=== PATIENT | male | born 1930 | race Two or more races ===

== ENCOUNTER → 2016-08-23 | Outpatient (CLI) | payer MEDICARE, MEDICAID ==
--- NOTE | 2016-08-23 14:30 | Diagnostic Imaging Report ---
Indications: And pain, status post fall Technique: Spiral acquisitions obtained through the brain. Angled axial and coronal 5 x 5 mm slices were reconstructed. Total dose length product 1333 mGycm. CTDI vol(s) 70 mGy Comparison: None Findings: There is a right frontoparietal craniotomy/craniectomy defect. There is no evidence of acute calvarial fracture. Questionably minimal scalp soft tissue contusion is seen in the high left parietal region near the midline. No other evidence of significant extracranial soft tissue injury. There is encephalomalacia involving the anterior right temporal lobe, and a smaller focus of encephalomalacia in the posterior right parietal lobe. There is ex vacuo dilatation of the body and temporal horn of the right lateral ventricle. There is generalized age-related enlargement of the ventricles and extra axial CSF spaces. No acute intracranial hemorrhage or edema. No mass effect or midline shift. Normal ordonez-white differentiation. There is left ethmoid sinus mucosal disease. The mastoids are clear. Included portions of the orbits are unremarkable except for possible prior cataract surgery on the right. 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 Correlate with clinical and surgical history Other chronic and age-related changes, as described Equivocal evidence of minimal high left parietal scalp soft tissue injury. Correlate with clinical findings Sinus disease The CT scanner at [facility] is accredited by the [employer] and the scans are performed using protocols designed to limit radiation exposure to as low as reasonably achievable to attain images of sufficient resolution adequate for diagnostic evaluation.
== END | disposition home or self-care (01) ==
LOC: CAT 12:59
DX: R51 Headache (principal); J32.9 Chronic sinusitis, unspecified; G93.89 Other specified disorders of brain
CPT/HCPCS: 70450